=== PATIENT | female | born 1995 | race Caucasian/White ===

== ENCOUNTER 2016-03-22 00:05 | Emergency (ER) | payer OTHER ==
[~2016-03-22] VITALS: Ht 165.1 cm; Wt 76.4 kg
[2016-03-22 00:09] VITALS: TEMP 36.7; Ht 165.1 cm; Wt 76.4 kg
[2016-03-22] MEDS ORDERED: CIPROFLOXACIN HCL 0.3% OP SOLN 2.5 ML BTL OP STA (00:38)
[2016-03-22] MEDS ORDERED: FLUT1INH PO (00:46)
[2016-03-22] MEDS ORDERED: FEXO1TAB49 PO (00:46)
[2016-03-22] MEDS ORDERED: ALBU18002 PO (00:46)
[2016-03-22] MEDS ORDERED: MONT1TAB3 PO (00:46)
[2016-03-22 01:09] VITALS: BP 128/83; PULSE 78; O2SAT 98
--- NOTE | 2016-03-22 03:59 | EMERGENCY ROOM VISIT NOTE ---
History Report prepared by Karina: Bushra Rivera Under the Supervision of: Dr. James Ward M.D. First contact with patient: 00:12 Chief Complaint: SINUS CONGESTION/PRESSURE Stated Complaint: SINUS CONGESTION,SORE THROAT,EYE SEEPING MUCUS Nursing Triage Summary: just had 10 days on antibiotic recently for sinus infection. today having discharge from right eye, sore throat and sinus congestion History of Present Illness The patient is a 20 year old female who presents to the Emergency Room with complaints of worsening right eye pain starting earlier today [employer]. The patient states that she had sinus congestion yesterday but woke up this morning with watering eyes. She states throughout the day she noticed that her left eye started to have a mucous discharge and she started to experience more eye pain. She states the pain feels scratchy and red.She states that the pain does not radiate around her eye. She states that she does wear monthly contacts and cleans them regularly and has never had a problem with her contacts before. The patient states she has also been experiencing a sore throat over the last week and has had some associated ear pain as well. The patient states that she was put on Augmentin about 3 weeks ago for a sinus infection in which she finished the entire prescription. The patient states she was seen at [facility] yesterday regarding the sore throat and congestion and was tested negative for Mononucleosis and negative for the rapid strep test but is still waiting for the strep culture results. The patient states that many people in her classes have had similar sinus symptoms. Pt denies LOC, headache, fevers, chills, diaphoresis, visual changes, neck pain, chest pain, breathing difficulties, nausea, vomiting, abdominal pain, back pain, melena, hematochezia, urinary symptoms, numbness, weakness, lymphadenopathy, rash, or other complaints. Source of History: patient Onset: earlier today [employer] Position: eye (right) Timing: worsening Associated Symptoms: + sorethroat Note: Associated symptoms: sinus congestion, red eyes, mucous discharge from right eye. Review of Systems See HPI for pertinent positives and negatives. A total of ten systems were reviewed and were otherwise negative. Past Medical & Surgical Medical Problems: (1) Asthma Family History Cancer Heart disease Hypertension Social History Smoking Status: Never Smoker Housing Status: lives with roommate Occupation Status: student Current/Historical Medications Scheduled Fexofenadine Hcl (Nahed Allergy), 1 TAB PO DAILY Fluticasone Furoate-Vilanterol (Breo Ellipta), 1 INHA PO DAILY Montelukast Sodium (Singulair), 10 MG PO DAILY Scheduled PRN Albuterol Sulfate (Proair Respiclick), 2 SPRAYS PO QID PRN for SOB/Wheezing Allergies Coded Allergies: No Known Allergies (Unverified , 03/22/16) Physical Exam Vital Signs Date Time Temp Pulse Resp B/P Pulse Ox O2 Delivery O2 Flow Rate FiO2 03/22/16 01:09 78 18 128/83 98 Room Air 03/22/16 00:09 36.7 82 18 139/96 95 Room Air Physical Exam GENERAL: Awake, alert, mildly ill appearing, no distress HEAD: Normocephalic, atraumatic. No edema. EYES: Apparent discharge from right eye. Conjunctiva in right side is erythematous. EARS: Right TM normal. Left TM normal. NOSE: Mild congestion. OROPHARYNX: Lips, tongue, and mucosa unremarkable. No erythema or exudate. NECK: Supple. No nuchal rigidity. FROM. No adenopathy. Negative jolt accentuation test. RESPIRATORY: CTA bilaterally. No wheezes rales or rhonchi. CARDIAC: Borderline tachycardic rate, normal rhythm. ABDOMEN: Soft, non distended. No tenderness to palpation. NEURO: Normal sensorium. SKIN: No rash or jaundice noted SLIT LAMP: Medical Decision & Procedures Medications Administered Medications (Trade) Dose Ordered Sig/Germán Route Start Time Stop Time Status Last Admin Dose Admin Ciprofloxacin HCl (Ciprofloxacin 0.3% Op Soln) 1 drops NOW STAT OP 03/22/16 00:38 03/22/16 00:39 DC 03/22/16 00:59 1 DROPS Procedure Slit Lamp Examination Indication:discharge/pain Slit lamp examination was performed in the standard fashion. Cornea appeared clear. Anterior chamber clear. Scleral injection was present. Purulent discharge present. Fluorescein examination performed and revealed no uptake. No foreign bodies noted. Negative Luz sign. The patient tolerated the procedure well without complication. ED Course 0020: The patient was evaluated in room B9. A complete history and physical exam was performed. 0038: Ordered Ciprofloxacin HCl 1 drops OP. 0040: I reevaluated the patient. Discussed results and discharge instructions: She verbalized understanding and agreement. The patient is ready for discharge. Medical Decision Triage Nursing notes reviewed and agree them. The patient's history was concerning for eye complaints and flulike symptoms. Differential diagnosis: Etiologies such as conjunctivitis, viral syndrome, tonsillitis, otitis, corneal abrasion, corneal ulcer, foreign body, globe penetration, hyphema, hypopyon, and orbital cellulitis, periorbital cellulitis, as well as others were entertained. Physical examination findings: As above.Slit-lamp examination revealed conjunctivitis but no evidence of hypopyon or corneal ulceration. No dendrites. ER treatment provided: Cipro ophthalmic Diagnostics interpretation by me: Imaging studies: Deferred The patient had been treated for sinusitis and did well with this. She then developed a sore throat and nasal congestion. She is a contact user. She woke up and had issues. The patient has purulent discharge. She has a conjunctivitis. There is no evidence of ulcer or penetrating issue. She has no periorbital cellulitis. She has no entrapment. She has no significant sinus pain. I suspect that she developed a new viral syndrome. She did have some mild tonsillitis but her strep test was negative per the patient at urgent care. She will have a confirmation culture available tomorrow and will follow- up with this. Her visual acuity was slightly diminished in the right eye. The patient will need close follow-up. She will use the Cipro. She does have a history of asthma and I encouraged her to use her albuterol regularly over the next few days. If she worsens in any way she will come back to the Emergency Room for reevaluation. By the evaluation outlined above emergent etiologies such astrauma, corneal abrasion, corneal ulcer, foreign body, globe penetration, hyphema, hypopyon, and orbital cellulitis, periorbital cellulitis, bacterial sinusitis as well as others were deemed relatively unlikely. The patient was informed about the findings as listed above. All questions were answered and she was pleased with the treatment. Return instructions were outlined and the patient was discharged in stable condition. Outpatient prescription management: Cipro ophthalmic given Referral: The patient was referred to primary clinic and eye doctor for follow-up for a recheck of the current condition. The chart was completed utilizing [employer] voice recognition software. Grammatical errors, random word insertions, pronoun errors, and incomplete sentences are an occasional consequence of this system due to software limitations, ambient noise, and hardware issues. Any formal questions or concerns about the content, text, or information contained within the body of this dictation should be directly addressed to the physician for clarification. Impression Primary Impression: Acute conjunctivitis Additional Impression: Acute tonsillitis Scribe Attestation The scribe's documentation has been prepared under my direction and personally reviewed by me in its entirety. I confirm that the note above accurately reflects all work, treatment, procedures, and medical decision making performed by me. Departure Information Dispostion Home / Self-Care Referrals No Doctor, Assigned (PCP) Forms HOME CARE DOCUMENTATION FORM, IMPORTANT VISIT INFORMATION, WORK / SCHOOL INSTRUCTIONS Patient Instructions My [facility] Additional Instructions Cipro Eyedrops: One drop to affected eye(s) every 3-4 hours while awake for 5 days. If you are still having symptoms you may need to extend usage. Stop using if you develop severe pain or swelling. Return to the ER for evaluation. Acetaminophen(Tylenol) may be used for fever or pain. Use 1000mg every six hours as needed. Avoid using more than 4000mg in a 24 hour period. And/or Ibuprofen(Motrin, Advil) may be used for fever or pain. Use 600mg every six hours as needed. Take with food. Avoid using more than 2400mg in a 24 hour period. Do not use 2400mg per day for more than three consecutive days without physician direction. Prolonged inappropriate use can lead to stomach upset or ulcers. Albuterol inhaler: Two puffs 4 times daily for seven days to improve breathing , then 2 puffs every 4-6 hours as needed. Cool compresses for 20 minutes at a time four times daily for 2-3 days. Wash your hands after touching your face or eyes. Minimize contact with others while your eyes are affected. Avoid bright lights today, wear sun glasses. Return to the ER for facial swelling, worsening vision, severe eye pain, fevers or as needed. Follow-up with urgent care tomorrow for your strep results. Follow-up with [facility] or your local provider for a recheck in 2-3 days. Problem Qualifiers
== END 2016-03-22 01:17 | disposition home or self-care (01) ==
LOC: C.EDB 00:06
DX: H10.31 Unspecified acute conjunctivitis, right eye (principal); J03.90 Acute tonsillitis, unspecified; J45.909 Unspecified asthma, uncomplicated; Z82.49 Family history of ischemic heart disease and other diseases of the circulatory system

== ENCOUNTER → 2017-01-20 | Outpatient (CLI) | payer OTHER ==
[~2017-01-20] MED LIST: ALBU18002 PO; FEXO1TAB49 PO; FLUT1INH PO; MONT1TAB3 PO
== END | disposition home or self-care (01) ==
LOC: C.PAPS 14:25
PROVIDERS: ATTEND Physician Assistant
DX: Z01.419 Encounter for gynecological examination (general) (routine) without abnormal findings (principal)